=== PATIENT | female | born 1960 | race Caucasian/White ===

== ENCOUNTER 2017-10-08 21:38 | Emergency (ER) | payer OTHER, MEDICARE ==
[~2017-10-08] VITALS: Ht 157.5 cm; Wt 65.8 kg
[~2017-10-08 21:38] MED LIST: Aspir 8181 MG PO; Bactrim Ds Tab1 EACH PO; Ferrous Sulfat325 M2 PO; IRON 21/7 TABL1 EACH PO; LOSA25 PO; METF500 PO; Multiple Vitam1 EAC1 PO; Omeprazole20 M1 PO; SIMV40 PO; SULI150 PO; Simvastatin40 MG PO; Synthroid25 MCG PO
[2017-10-08 22:09] LABS: BASOPHILS ABSOLUTE AUTO 0.02 K/mm3 (0.00-0.23); BASOPHILS PERCENT AUTO 0 % (0-2); EOSINOPHILS ABSOLUTE AUTO 0.07 K/mm3 (0.00-0.68); EOSINOPHILS PERCENT AUTO 1 % (0-6); Hematocrit 28.7 % (33.0-51.0); Hemoglobin 9.3 g/dL (11.5-16.0); IMMATURE GRAN ABSOLUTE AUTO 0.03 K/mm3 (0.00-0.10); IMMATURE GRAN PERCENT AUTO 1 % (0-1); LYMPHOCYTES PERCENT AUTO 28 % (21-46); MONOCYTES ABSOLUTE AUTO 0.28 K/mm3 (0.16-1.47); MONOCYTES PERCENT AUTO 5 % (4-13); Mean Corpuscular HGB 27.4 pg (26.0-34.0); Mean Corpuscular HGB Conc 32.4 g/dL (31.5-36.5); Mean Corpuscular Volume 84 fL (80-100); Mean Platelet Volume 8.7 fL (9.1-12.4); NEUTROPHILS ABSOLUTE AUTO 3.56 K/mm3 (1.96-9.15); NEUTROPHILS PERCENT AUTO 65 % (41-73); Platelet Count 481 K/mm3 (150-400); RDW Coefficient Variation 14.6 % (11.7-14.2); RDW Standard Deviation 44.2 fL (35.1-46.3); White Blood Cell Count 5.46 K/mm3 (4.00-11.30)
[2017-10-08 23:47] LABS: Source, Urine Clean Catch
[2017-10-08 23:50] LABS: Bilirubin, Urine Neg (Neg); Blood, Urine 5+ (Neg); Glucose Qualitative, Urine Neg (Neg); Ketones, Urine Neg (Neg); Leukocyte Esterase, Urine Neg (Neg); Nitrite, Urine Neg (Neg); Protein, Urine 1+ (Neg); Urobilinogen, Urine NORM (Normal)
[2017-10-08 23:52] LABS: Appearance, Urine Clear (Clear); Color, Urine Yellow (P-Yellow)
[2017-10-08 23:59] LABS: Bacteria Rare /hpf; Red Blood Cells, Urine 50-100 /hpf (0-2); Squamous Epithelial Cells Not Seen /hpf (Few); White Blood Cells, Urine Rare /hpf (0-5)
[2017-10-09 00:40] LABS: Calcium, Ionized (POC) 1.23 mmol/L (1.10-1.46); Chloride (POC) 105 mmol/L (98-108); Creatinine (POC) 0.6 mg/dL (0.6-1.0); Glucose (ISTAT POC) 163 mg/dL (70-99); Hemoglobin (POC) 8.5 g/dL (12.0-16.0); Potassium (POC) 3.8 mmol/L (3.5-5.5); Sodium (POC) 138 mmol/L (135-148); Total CO2 (POC) 24 mmol/L (21-32)
[2017-10-09 00:51] LABS: Alk Phos 129 U/L (50-136); Anion Gap 10 mmol/L (6-16); Aspartate Aminotrans (AST/SGOT 21 U/L (12-37); Bilirubin, Total 0.3 mg/dL (0.1-1.0); Blood Urea Nitrogen 18 mg/dL (8-24); Bun/Creatinine Ratio 29.9 (12.0-20.0); CO2, Blood 24 mmol/L (21-32); Calcium, Blood 9.3 mg/dL (8.5-10.1); Chloride, Blood 104 mmol/L (98-108); Globulin, Blood 3.9 g/dL (2.2-4.0); Glomerular Filtration Rate >60 (60-); Glucose, Blood 142 mg/dL (70-99); Potassium, Blood 3.5 mmol/L (3.5-5.5); Sodium, Blood 138 mmol/L (136-145); Total Protein, Blood 7.9 g/dL (6.4-8.2)
[2017-10-09 00:53] LABS: Alanine Aminotransfer (ALT/SGP 40 U/L (12-78)
[2017-10-09] MEDS ORDERED: Norco 10-325 T1 EACH PO (04:42)
[2017-10-09] MEDS ORDERED: Zofran Odt4 MG SL (04:43)
== END 2017-10-09 05:05 | disposition home or self-care (01) ==
LOC: ER 21:38
PROVIDERS: Nurse Practitioner Family; Physician Assistant
DX: N85.8 Other specified noninflammatory disorders of uterus (principal); I10 Essential (primary) hypertension; E11.9 Type 2 diabetes mellitus without complications; E78.00 Pure hypercholesterolemia, unspecified; E03.9 Hypothyroidism, unspecified; Z79.899 Other long term (current) drug therapy; Z79.84 Long term (current) use of oral hypoglycemic drugs; Z79.82 Long term (current) use of aspirin; Z87.891 Personal history of nicotine dependence
CPT/HCPCS: 74177; 76830; 76856; 80047; 80053; 81001; 81025; 83690; 85014; 85025; 86304; 96361; 96374; 96375; 96376; 99284; J1170; J2405; Q9967

== ENCOUNTER → 2017-10-09 | Outpatient (CLI) | payer OTHER, MEDICARE ==
[~2017-10-09] MED LIST changes: +IBUP800 PO; +MECL12.5 PO; +Norco 10-325 T1 EACH PO; +Percocet 5-3251 EACH PO; +Zofran Odt4 MG SL
== END | disposition home or self-care (01) ==
LOC: LAB SHORT 07:30 → PLD 07:30
DX: N95.0 Postmenopausal bleeding (principal)
CPT/HCPCS: 88305

== ENCOUNTER → 2017-10-14 | Outpatient (CLI) | payer OTHER, MEDICARE | END | disposition home or self-care (01) | LOC: LAB SHORT 07:29 → PLD 07:29 | DX: N95.0 Postmenopausal bleeding (principal) | CPT/HCPCS: 88305 ==

== ENCOUNTER 2017-10-24 08:57 | Day surgery (SDC) | payer OTHER, MEDICARE ==
[~2017-10-24] VITALS: Ht 157.5 cm; Wt 66.2 kg
[~2017-10-24 08:57] MED LIST changes: -IBUP800 PO; -MECL12.5 PO; -Percocet 5-3251 EACH PO
== END 2017-10-24 22:55 | disposition home or self-care (01) ==
LOC: ORSCMMR 08:57
PROVIDERS: Obstetrics & Gynecology
PROC: 0UDB7ZX Extraction of Endometrium, Via Natural or Artificial Opening, Diagnostic (ICD-10-PCS; principal; 2017-10-24 10:30)
PROC: 0UB98ZX Excision of Uterus, Via Natural or Artificial Opening Endoscopic, Diagnostic (ICD-10-PCS; principal; 2017-10-24 10:30)
DX: N95.0 Postmenopausal bleeding (principal); N84.0 Polyp of corpus uteri; D25.0 Submucous leiomyoma of uterus; Z87.891 Personal history of nicotine dependence; E11.9 Type 2 diabetes mellitus without complications; E03.9 Hypothyroidism, unspecified; E78.5 Hyperlipidemia, unspecified; I10 Essential (primary) hypertension; Z79.84 Long term (current) use of oral hypoglycemic drugs; Z79.899 Other long term (current) drug therapy
CPT/HCPCS: 36415; 82947; 86850; 86900; 86901; 86923; 88305; J1100; J1885; J2250; J2405; J3010; J7120

== ENCOUNTER 2017-11-21 07:21 | Inpatient (IN) | payer OTHER, MEDICARE ==
[~2017-11-21] VITALS: Ht 157.5 cm; Wt 64.4 kg
[2017-11-22 04:20] LABS: BASOPHILS ABSOLUTE AUTO 0.01 K/mm3 (0.00-0.23); BASOPHILS PERCENT AUTO 0 % (0-2); EOSINOPHILS PERCENT AUTO 0 % (0-6); Hematocrit 35.5 % (33.0-51.0); Hemoglobin 11.2 g/dL (11.5-16.0); IMMATURE GRAN ABSOLUTE AUTO 0.01 K/mm3 (0.00-0.10); IMMATURE GRAN PERCENT AUTO 0 % (0-1); LYMPHOCYTES ABSOLUTE AUTO 1.02 K/mm3 (0.84-5.20); LYMPHOCYTES PERCENT AUTO 13 % (21-46); MONOCYTES PERCENT AUTO 6 % (4-13); Mean Corpuscular HGB 25.9 pg (26.0-34.0); Mean Corpuscular HGB Conc 31.5 g/dL (31.5-36.5); NEUTROPHILS ABSOLUTE AUTO 6.45 K/mm3 (1.96-9.15); NEUTROPHILS PERCENT AUTO 81 % (41-73); Platelet Count 278 K/mm3 (150-400); RDW Coefficient Variation 13.9 % (11.7-14.2); RDW Standard Deviation 41.2 fL (35.1-46.3); Red Blood Cell Count 4.33 M/mm3 (3.80-5.20); White Blood Cell Count 7.99 K/mm3 (4.00-11.30)
[2017-11-22 04:32] LABS: Mean Corpuscular Volume 82 fL (80-100)
[2017-11-22] MEDS ORDERED: IBUP800 PO (16:44)
[2017-11-22] MEDS ORDERED: Percocet 5-3251 EACH PO (16:44)
== END 2017-11-22 17:04 | disposition home or self-care (01) | DRG 743 ==
LOC: SURS 07:21
PROVIDERS: Obstetrics & Gynecology
PROC: 0UT90ZZ Resection of Uterus, Open Approach (ICD-10-PCS; principal; 2017-11-21 09:00)
DX: D25.9 Leiomyoma of uterus, unspecified (principal); E03.9 Hypothyroidism, unspecified; N83.9 Noninflammatory disorder of ovary, fallopian tube and broad ligament, unspecified; N95.0 Postmenopausal bleeding; E11.9 Type 2 diabetes mellitus without complications; I10 Essential (primary) hypertension; K21.9 Gastro-esophageal reflux disease without esophagitis; Z79.84 Long term (current) use of oral hypoglycemic drugs; Z79.899 Other long term (current) drug therapy
CPT/HCPCS: 36415; 82947; 85025; 88108; 88307; J0690; J1100; J2250; J2405; J2710; J3010; J7120

== ENCOUNTER 2018-03-17 20:32 | Emergency (ER) | payer OTHER, MEDICARE ==
[~2018-03-17] VITALS: Ht 157.5 cm; Wt 65.8 kg
[~2018-03-17 20:32] MED LIST changes: +IBUP800 PO; +Percocet 5-3251 EACH PO
== END 2018-03-17 21:50 | disposition home or self-care (01) ==
LOC: ER 20:32
DX: H91.92 Unspecified hearing loss, left ear (principal); I10 Essential (primary) hypertension; E11.9 Type 2 diabetes mellitus without complications; Z79.899 Other long term (current) drug therapy; Z79.84 Long term (current) use of oral hypoglycemic drugs; Z87.891 Personal history of nicotine dependence
CPT/HCPCS: 99283

== ENCOUNTER 2018-04-03 19:49 | Emergency (ER) | payer OTHER, MEDICARE ==
[~2018-04-03] VITALS: Ht 162.6 cm; Wt 65.8 kg
[2018-04-03] MEDS ORDERED: MECL12.5 PO (23:40)
== END 2018-04-04 00:37 | disposition home or self-care (01) ==
LOC: ER 19:49
DX: R42 Dizziness and giddiness (principal); H93.13 Tinnitus, bilateral; H91.93 Unspecified hearing loss, bilateral; Z79.84 Long term (current) use of oral hypoglycemic drugs; Z79.899 Other long term (current) drug therapy; E11.9 Type 2 diabetes mellitus without complications; I10 Essential (primary) hypertension; E78.5 Hyperlipidemia, unspecified; Z87.891 Personal history of nicotine dependence
CPT/HCPCS: 70450; 99283-25

== ENCOUNTER 2021-01-18 07:58 | Day surgery (SDC) | payer BC, MEDICARE ==
[~2021-01-18] VITALS: Ht 157.5 cm; Wt 58.6 kg
[~2021-01-18 07:58] MED LIST changes: +MECL12.5 PO
[2021-01-18] MEDS ORDERED: ASPI81CH (08:25)
== END 2021-01-18 10:21 | disposition home or self-care (01) ==
LOC: ORSCSDS 07:58
PROVIDERS: Internal Medicine Gastroenterology
PROC: 0DBP8ZX Excision of Rectum, Via Natural or Artificial Opening Endoscopic, Diagnostic (ICD-10-PCS; principal; 2021-01-18 09:15)
PROC: 3E0H8KZ Introduction of Other Diagnostic Substance into Lower GI, Via Natural or Artificial Opening Endoscopic (ICD-10-PCS; principal; 2021-01-18 09:15)
DX: Z12.11 Encounter for screening for malignant neoplasm of colon (principal); Z86.010 Personal history of colon polyps; Z80.0 Family history of malignant neoplasm of digestive organs; D12.8 Benign neoplasm of rectum; E11.9 Type 2 diabetes mellitus without complications; E78.5 Hyperlipidemia, unspecified; I10 Essential (primary) hypertension; Z79.84 Long term (current) use of oral hypoglycemic drugs; Z79.899 Other long term (current) drug therapy
CPT/HCPCS: 82947; 88305; J2704; J7120

== ENCOUNTER 2025-08-03 14:13 | Inpatient (IN) | payer OTHER, BC ==
[~2025-08-03] VITALS: Ht 162.6 cm; Wt 63.0 kg
[~2025-08-03 14:13] MED LIST changes: +ASCO500; +ASPI81CH; +CHROMIUM200 MCG; +MULVITA
[2025-08-03] MEDS ORDERED: NS 1,000 ML IV SCH ×2 (14:30→17:55)
[2025-08-03 14:51] LABS: BASOPHILS ABSOLUTE AUTO 0.01 K/mm3 (0.00-0.23); BASOPHILS PERCENT AUTO 0 % (0-2); EOSINOPHILS ABSOLUTE AUTO 0.01 K/mm3 (0.00-0.68); EOSINOPHILS PERCENT AUTO 0 % (0-6); Hematocrit 35.8 % (33.0-51.0); Hemoglobin 11.7 g/dL (11.5-16.0); IMMATURE GRAN ABSOLUTE AUTO 0.01 K/mm3 (0.00-0.10); IMMATURE GRAN PERCENT AUTO 0 % (0-1); LYMPHOCYTES ABSOLUTE AUTO 0.95 K/mm3 (0.84-5.20); LYMPHOCYTES PERCENT AUTO 16 % (21-46); MONOCYTES ABSOLUTE AUTO 0.27 K/mm3 (0.16-1.47); MONOCYTES PERCENT AUTO 5 % (4-13); Mean Corpuscular HGB Conc 32.7 g/dL (31.5-36.5); Mean Corpuscular Volume 82 fL (80-100); NEUTROPHILS ABSOLUTE AUTO 4.72 K/mm3 (1.96-9.15); NEUTROPHILS PERCENT AUTO 79 % (41-73); NRBC ABSOLUTE 0.00 K/mm3 (0.00-0.02); NRBC Auto 0.0 /100 WBC (0.0-0.2); Platelet Count 323 K/mm3 (150-400); RDW Coefficient Variation 13.8 % (11.7-14.2); RDW Standard Deviation 40.9 fL (35.1-46.3)
[2025-08-03 15:13] LABS: Alanine Aminotransfer (ALT/SGP 53.0 U/L (12-78); Albumin, Blood 4.0 g/dL (3.4-5.0); Albumin/Globulin Ratio 1.1 (0.8-1.8); Anion Gap 10.0 mmol/L (3-11); Aspartate Aminotrans (AST/SGOT 32.0 U/L (12-37); Bilirubin, Total 0.3 mg/dL (0.1-1.0); Blood Urea Nitrogen 11.0 mg/dL (8-24); CO2, Blood 23.0 mmol/L (21-32); Calcium, Blood 9.8 mg/dL (8.5-10.1); Chloride, Blood 106.0 mmol/L (98-108); Creatinine, Blood 0.51 mg/dL (0.40-1.00); Globulin, Blood 3.5 g/dL (2.2-4.0); Glucose, Blood 207.0 mg/dL (70-99); Potassium, Blood 4.2 mmol/L (3.5-5.5); Sodium, Blood 135.0 mmol/L (136-145); Total Protein, Blood 7.5 g/dL (6.4-8.2)
[2025-08-03] MEDS ORDERED: Ondansetron HCl 2 MG / ML 2ML Vial IV ONE (17:20)
[2025-08-03] MEDS ORDERED: HYDROmorphone HCl/Pf 1MG SYR IV ONE (17:20)
[2025-08-03] MEDS ORDERED: GLIP5 PO (17:32)
[2025-08-03] MEDS ORDERED: FLU VACC TS2025(65UP)/MF59C/PF 45 MCG/0.5 ML SYRINGE IM SCH ×2 (18:00→18:45)
[2025-08-03] MEDS ORDERED: Insulin Human Lispro 100 Units/ML 3ML Syringe SC SCH (18:00)
[2025-08-03] MEDS ORDERED: Ondansetron HCl 2 MG / ML 2ML Vial IV PRN ×2 (18:00→18:45)
[2025-08-03] MEDS ORDERED: Labetalol HCL 5 MG/ML 4ML Injection (Single Dose) IV PRN (18:00)
[2025-08-03 20:58] LABS: Hematocrit 33.0 % (33.0-51.0); Hemoglobin 10.7 g/dL (11.5-16.0)
[2025-08-03 21:30] VITALS: BP 137/67
[2025-08-03] MEDS ORDERED: AMARYL1 M1 PO (21:34)
[2025-08-03] MEDS ORDERED: ROSUVASTATIN CA40 MG PO (21:34)
[2025-08-03] MEDS ORDERED: METF500 PO (21:34)
[2025-08-03 22:00] VITALS: BP 137/71
--- NOTE | 2025-08-03 22:04 | NUR ---
ARRIVAL TO UNIT PT ARRIVED TO RM 11 APPROX 2119. PT SETTLED, ADMISSION AND MED REC COMPLETED, DENIES UNMET NEEDS AT THIS TIME, CALL LIGHT WITHIN REACH.
[2025-08-03] MEDS ORDERED: FentaNYL Citrate 50 MCG/ML 2 ML Injection IV PRN (22:15)
[2025-08-03 22:30] VITALS: BP 122/71
[2025-08-03 23:00] VITALS: BP 126/64
[2025-08-03 23:30] VITALS: BP 119/69
[2025-08-04] VITALS (15 sets, daily range): BP systolic 111–132; BP diastolic 61–73
[2025-08-04 00:58] LABS: Hematocrit 33.5 % (33.0-51.0); Hemoglobin 11.0 g/dL (11.5-16.0)
[2025-08-04 04:59] LABS: BASOPHILS ABSOLUTE AUTO 0.02 K/mm3 (0.00-0.23); BASOPHILS PERCENT AUTO 0 % (0-2); EOSINOPHILS ABSOLUTE AUTO 0.05 K/mm3 (0.00-0.68); EOSINOPHILS PERCENT AUTO 1 % (0-6); Hematocrit 35.5 % (33.0-51.0); Hemoglobin 11.4 g/dL (11.5-16.0); IMMATURE GRAN ABSOLUTE AUTO 0.01 K/mm3 (0.00-0.10); IMMATURE GRAN PERCENT AUTO 0 % (0-1); LYMPHOCYTES ABSOLUTE AUTO 1.12 K/mm3 (0.84-5.20); LYMPHOCYTES PERCENT AUTO 21 % (21-46); MONOCYTES ABSOLUTE AUTO 0.28 K/mm3 (0.16-1.47); MONOCYTES PERCENT AUTO 5 % (4-13); Mean Corpuscular HGB Conc 32.1 g/dL (31.5-36.5); Mean Corpuscular Volume 82 fL (80-100); NEUTROPHILS ABSOLUTE AUTO 3.86 K/mm3 (1.96-9.15); NEUTROPHILS PERCENT AUTO 72 % (41-73); NRBC ABSOLUTE 0.00 K/mm3 (0.00-0.02); NRBC Auto 0.0 /100 WBC (0.0-0.2); Platelet Count 280 K/mm3 (150-400); RDW Coefficient Variation 13.9 % (11.7-14.2); RDW Standard Deviation 41.4 fL (35.1-46.3)
[2025-08-04 05:19] LABS: Alanine Aminotransfer (ALT/SGP 45.0 U/L (12-78); Albumin, Blood 3.7 g/dL (3.4-5.0); Albumin/Globulin Ratio 1.1 (0.8-1.8); Anion Gap 8.0 mmol/L (3-11); Aspartate Aminotrans (AST/SGOT 21.0 U/L (12-37); Bilirubin, Total 0.4 mg/dL (0.1-1.0); Blood Urea Nitrogen 6.0 mg/dL (8-24); CO2, Blood 25.0 mmol/L (21-32); Calcium, Blood 9.4 mg/dL (8.5-10.1); Chloride, Blood 109.0 mmol/L (98-108); Creatinine, Blood 0.49 mg/dL (0.40-1.00); Globulin, Blood 3.4 g/dL (2.2-4.0); Glucose, Blood 166.0 mg/dL (70-99); Magnesium, Blood 2.4 mg/dL (1.6-2.4); Potassium, Blood 3.9 mmol/L (3.5-5.5); Sodium, Blood 138.0 mmol/L (136-145); Total Protein, Blood 7.1 g/dL (6.4-8.2)
[2025-08-04 09:23] LABS: Hematocrit 35.5 % (33.0-51.0); Hemoglobin 11.3 g/dL (11.5-16.0)
[2025-08-04] MEDS ORDERED: Insulin Human Lispro 100 Units/ML 3ML Syringe SC SCH (11:30)
--- NOTE | 2025-08-04 12:17 | NUR ---
REASSESSMENT PT HAS BEEN RESTING IN BED THROUGHOUT THE MORNING. SHE GETS UP TO THE RESTROOM WITH MINIMAL ASSIST. URINE IS CLEAR, YELLOW. SHE DOES COMPLAIN OF SOME GENERALIZED PAIN AROUND HER ABDOMEN AND CHEST. SPOKE WITH DR. STRANGE AND ONE TIME TYLENOL ORDER PLACED. LUNGS ARE CLEAR, RA, SR, MAP ABOVE 65. PT'S HSUBAND AT THE BEDSIDE AND HAS BEEN UPDATED ALONG WITH THE PT. DR. DELA CRUZ GAVE OK FOR PT TO EAT AND PT IS TOLERATING HER DIET. DR. DELA CRUZ ALSO GAVE OK FOR PT TO BE SURGICAL TELE STATUS.
[2025-08-04 13:44] LABS: Hematocrit 34.4 % (33.0-51.0); Hemoglobin 11.2 g/dL (11.5-16.0)
--- NOTE | 2025-08-04 16:58 | NUR ---
SHIFT SUMMARY PT'S H/H REMAINED STABLE THROUGHOUT THE SHIFT. SHE CONTINUES TO HAVE TENDERNESS AROUND HER ABDOMEN, BUT HAS BEEN ABLE TO GET UP TO THE BATHROOM, WITH MINIMAL ASSISTANCE, SEVERAL TIMES TODAY. SHE REMAINS ALERT AND ORIENTED, LUNGS CLEAR ON RA WITH SPO2 MID 90S, SR, MAP ABOVE 60. VOIDING WITHOUT DIFFICULTY, NO VISIBLE HEMATURIA. TOLERATING DIET AND EATING MORE THAN 50%. PT'S SPENT A LARGE PORTION OF THE SHIFT AT THE BEDSIDE. PT AND HIM HAVE BEEN UPDATED THROUGHOUT.
--- NOTE | 2025-08-04 20:52 | NUR ---
ASSUMPTION OF CARE CARE OF PT ASSUMED FOLLOWING BEDSIDE SHIFT REPORT FROM DAY RN. PT LYING IN BED IN NO APPARENT DISTRESS, ALERT AND ORIENTED, AFEBRILE, PAIN IN ABDOMEN- TREATED PER OCT. PT HAS COCLEAR IMPLANTS BILATERALLY. SINUS RHYTHM AND STABLE BP. NO CHEST PAIN/PRESSURE. SAT > 92% ON RA. LUNGS CLEAR. NO SOB AB PAIN, BUT NO N/V. PT ATE DINNER. POC GLUCOSE 248 WITH NO LSS COVERAGE. BOTH PIV'S FLUSH AND DRAW. PLAN IS CONTINUE TO MONITOR AND CT SCAN IN MORNING TO CHECK FOR STABILIZATION OF RETROPERITONEAL BLEED. WILL FURTHER REVIEW AND CONTINUE PLAN OF CARE.
[2025-08-05 03:52] VITALS: BP 114/67
[2025-08-05 03:57] LABS: BASOPHILS ABSOLUTE AUTO 0.02 K/mm3 (0.00-0.23); BASOPHILS PERCENT AUTO 0 % (0-2); EOSINOPHILS ABSOLUTE AUTO 0.05 K/mm3 (0.00-0.68); EOSINOPHILS PERCENT AUTO 1 % (0-6); Hematocrit 33.1 % (33.0-51.0); Hemoglobin 10.7 g/dL (11.5-16.0); IMMATURE GRAN ABSOLUTE AUTO 0.02 K/mm3 (0.00-0.10); IMMATURE GRAN PERCENT AUTO 0 % (0-1); LYMPHOCYTES ABSOLUTE AUTO 0.80 K/mm3 (0.84-5.20); LYMPHOCYTES PERCENT AUTO 18 % (21-46); MONOCYTES ABSOLUTE AUTO 0.34 K/mm3 (0.16-1.47); MONOCYTES PERCENT AUTO 8 % (4-13); Mean Corpuscular HGB Conc 32.3 g/dL (31.5-36.5); Mean Corpuscular Volume 81 fL (80-100); NEUTROPHILS ABSOLUTE AUTO 3.28 K/mm3 (1.96-9.15); NEUTROPHILS PERCENT AUTO 73 % (41-73); NRBC ABSOLUTE 0.00 K/mm3 (0.00-0.02); NRBC Auto 0.0 /100 WBC (0.0-0.2); Platelet Count 262 K/mm3 (150-400); RDW Coefficient Variation 13.9 % (11.7-14.2); RDW Standard Deviation 40.5 fL (35.1-46.3)
[2025-08-05 04:20] LABS: Alanine Aminotransfer (ALT/SGP 47.0 U/L (12-78); Albumin, Blood 3.3 g/dL (3.4-5.0); Albumin/Globulin Ratio 1.0 (0.8-1.8); Anion Gap 9.0 mmol/L (3-11); Aspartate Aminotrans (AST/SGOT 21.0 U/L (12-37); Bilirubin, Total 0.4 mg/dL (0.1-1.0); Blood Urea Nitrogen 11.0 mg/dL (8-24); CO2, Blood 23.0 mmol/L (21-32); Calcium, Blood 9.2 mg/dL (8.5-10.1); Chloride, Blood 108.0 mmol/L (98-108); Creatinine, Blood 0.56 mg/dL (0.40-1.00); Globulin, Blood 3.3 g/dL (2.2-4.0); Glucose, Blood 211.0 mg/dL (70-99); Magnesium, Blood 2.3 mg/dL (1.6-2.4); Potassium, Blood 4.0 mmol/L (3.5-5.5); Sodium, Blood 136.0 mmol/L (136-145); Total Protein, Blood 6.6 g/dL (6.4-8.2)
--- NOTE | 2025-08-05 06:44 | NUR ---
SHIFT SUMMARY PT LYING IN BED IN NO APPARENT DISTRESS. AFEBRILE. SINUS RHYTHM IN THE 70'S TO 80'S, MAP > 65. 94% ON RA. ABDOMINAL PAIN AND HEADACHE PRESENT, TREATED WITH SMALL DOSE FENTANYL X 2 AND RECENTLY WITH TYLENOL. URINE HAS BEEN WITHOUT GROSS HEMATURIA. HEMOGLOBIN STABLE AT 10.7 THIS AM. OTHER LABS WNL. PT TAKEN TO CT AT 0600 THIS AM. STEADY ON FEET WITHOUT DIZZINESS OR SUBSTANTIAL INCREASE IN HR. BEDSIDE SHIFT REPORT GIVEN TO DAY RN.
[2025-08-05 10:56] VITALS: BP 127/77
--- NOTE | 2025-08-05 11:39 | NUR ---
DISHCARGE SUMMARY: PATIENT HAS REMAINED STABLE ON H+H, NO ACUTE CONCERNS FROM SPECIALIST OR SURGEON, PATIENT IN NO ACUTE DISTRESS. A/O X 4 ABLE TO MAKE NEEDS KNOWN, HAS TYLENOL GIVEN BY NIGHT RN HELPED MOST WITH PAIN, EDUCATED ON DEEP BREATHING, VSS NO ACUTE CONCERNS. INDEPENDENT IN THE ROOM. FOLLOW UP SPECIALTY APPOINTMENTS TO CALL HER AND HER TO CALL FOR UROLOGY. INFORMATION IN DISHCARGE PACKET. PATIENT WALKED OUT WITH WHO ALSO HAD NO QUESTIONS OR CONCERNS ABOUT DISCHARGE.
== END 2025-08-05 11:05 | disposition home or self-care (01) | DRG 965 ==
LOC: ER 14:13 → ICUE 18:42 → ERHOLD 18:42 → ICUE 18:42
PROVIDERS: Emergency Medicine; Nurse Practitioner Acute Care; Urology; ADMIT Surgery
DX: S37.091A Other injury of right kidney, initial encounter (principal); S36.898A Other injury of other intra-abdominal organs, initial encounter; D17.71 Benign lipomatous neoplasm of kidney; E78.5 Hyperlipidemia, unspecified; I10 Essential (primary) hypertension; E11.65 Type 2 diabetes mellitus with hyperglycemia; E06.3 Autoimmune thyroiditis; Z96.21 Cochlear implant status; V43.52XA Car driver injured in collision with other type car in traffic accident, initial encounter; Z79.890 Hormone replacement therapy; Z79.84 Long term (current) use of oral hypoglycemic drugs; Z79.82 Long term (current) use of aspirin
CPT/HCPCS: 36415; 74176; 74177; 80053; 82947; 83735; 85014; 85018; 85025; 86850; 86900; 86901; 96361; 96374-59; 96375; 99285-25; A9270; J1171; J2405; J3010; J7030; J7120; Q9967